=== PATIENT | female | born 1970 | race Asian ===

== ENCOUNTER 2019-02-26 23:13 | Emergency (ER) | payer MEDICAID ==
[~2019-02-26] VITALS: Ht 165.1 cm; Wt 55.8 kg
[2019-02-26 23:22] VITALS: BP_SYST 148
[2019-02-26 23:35] VITALS: BP_SYST 130
== END 2019-02-26 23:35 ==
LOC: SED 23:13
DX: Z02.89 Encounter for other administrative examinations (principal); R03.0 Elevated blood-pressure reading, without diagnosis of hypertension
CPT/HCPCS: 99283